=== PATIENT | female | born 1960 | race Caucasian/White ===

== ENCOUNTER 2016-06-04 13:40 | Emergency (ER) | payer SELFPAY ==
[~2016-06-04] VITALS: Ht 144.8 cm; Wt 56.8 kg
[2016-06-04 13:40] VITALS: Ht 144.8 cm; Wt 56.8 kg
[2016-06-04] MEDS ORDERED: HALOPERIDOL 5 MG INJ ONE (13:50)
[2016-06-04] MEDS ORDERED: LORAZEPAM 2 MG INJ ONE (13:50)
[2016-06-04] MEDS ORDERED: HALOPERIDOL 5 MG INJ IM ONE (14:00)
[2016-06-04] MEDS ORDERED: LORAZEPAM 2 MG INJ IM ONE (14:00)
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
[2016-06-04 15:35] LABS: ADD SCAN DIFF NO
[2016-06-04 15:39] LABS: BASOPHILS % 0.3 % (0.0-2.0); EOSINOPHILS # 0.2 10^3/ul (0.0-0.5); EOSINOPHILS % 2.9 % (0.0-7.0); HEMATOCRIT 31.5 % (37.0-47.0); HEMOGLOBIN 9.9 g/dl (12.0-16.0); LYMPHOCYTES # 2.7 10^3/ul (0.8-2.9); LYMPHOCYTES % 36.3 % (15.0-51.0); MEAN CORPUSCULAR HEMOGLOBIN 29.1 pg (29.0-33.0); MEAN CORPUSCULAR HGB CONC 31.4 g/dl (32.0-37.0); MEAN CORPUSCULAR VOLUME 92.6 fl (82.0-101.0); MEAN PLATELET VOLUME 9.5 fl (7.4-10.4); MONOCYTE # 0.6 10^3/ul (0.3-0.9); MONOCYTES % 8.1 % (0.0-11.0); NEUTROPHIL # 3.9 10^3/ul (1.6-7.5); NEUTROPHILS % 52.1 % (39.0-77.0); PLATELET COUNT 309 10^3/UL (140-415); RED CELL DISTRIBUTION WIDTH 16.6 % (11.5-14.5); WHITE BLOOD COUNT 7.5 10^3/ul (4.8-10.8)
[2016-06-04 15:42] LABS: ADD UMIC YES; URINE BILIRUBIN (Dip) NEGATIVE (NEGATIVE); URINE BLOOD (Dip) NEGATIVE (NEGATIVE); URINE COLOR LT. YELLOW (YELLOW); URINE GLUCOSE (Dip) NEGATIVE (NEGATIVE); URINE KETONES (Dip) NEGATIVE (NEGATIVE); URINE LEUKOCYTE ESTERASE (Dip) 3+ (NEGATIVE); URINE NITRITE (Dip) NEGATIVE (NEGATIVE); URINE TOTAL PROTEIN (Dip) NEGATIVE (NEGATIVE); URINE UROBILINOGEN (Dip) 0.2 E.U./dL (0.1-1.0)
[2016-06-04 15:50] LABS: ALBUMIN 3.4 g/dl (3.3-4.9)
[2016-06-04 15:51] LABS: CHLORIDE 104 mmol/L (97-110); INR 0.87; PARTIAL THROMBOPLASTIN TIME 27.7 Sec (25.0-35.0); POTASSIUM 3.5 mmol/L (3.5-5.1); PROTIME 11.8 Sec (12.2-14.2); PT RATIO 0.9; SODIUM 139 mmol/L (135-144)
[2016-06-04 15:53] LABS: ANION GAP 13 (8-16); ASPARTATE AMINO TRANSFERASE 52 IU/L (15-46); BACTERIA,URINE MANY; BILIRUBIN,INDIRECT 0.1 mg/dl (0-1.1); BILIRUBIN,TOTAL 0.1 mg/dl (0.2-1.3); CARBON DIOXIDE 26 mmol/L (21-31); CREATININE 0.65 mg/dl (0.44-1.00); SQUAMOUS EPITHELIAL CELL,UR MANY; URINE RBCS NONE SEEN /HPF (0)
[2016-06-04 15:54] LABS: ALANINE AMINOTRANSFERASE 43 IU/L (13-69); ALKALINE PHOSPHATASE 146 IU/L (42-121); BLOOD UREA NITROGEN 17 mg/dl (7-20); CALCIUM 9.6 mg/dl (8.4-10.2); GLUCOSE 97 mg/dl (70-220); SALICYLATE < 1.0 mg/dl (5.0-30.0); TOTAL PROTEIN 6.8 g/dl (6.1-8.1)
[2016-06-04 15:55] LABS: ACETAMINOPHEN < 10.0 ug/ml (10.0-30.0)
[2016-06-04 16:03] LABS: ETHANOL < 10.0 mg/dl
[2016-06-04 16:15] LABS: BARBITURATES Negative (NEGATIVE); BENZODIAZEPINES Negative (NEGATIVE); CANNABINOIDS Negative (NEGATIVE); COCAINE Positive (NEGATIVE); OPIATES Negative (NEGATIVE)
[2016-06-04] MEDS ORDERED: CIPROFLOXACIN 500 MG TAB PO ONE (17:00)
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
[2016-06-05] MEDS ORDERED: LORAZEPAM 2 MG INJ IM ONE (16:00)
[2016-06-06 04:27] VITALS: BP 138/99; PULSE 81; RESP 18; TEMP 98.7
== END 2016-06-06 05:09 ==
LOC: E/R 13:40
DX: F20.9 Schizophrenia, unspecified (principal); N30.00 Acute cystitis without hematuria; F14.10 Cocaine abuse, uncomplicated; R07.9 Chest pain, unspecified
CPT/HCPCS: 36415; 80053; 80306; 80307; 81001; 81003; 85025; 85610; 85730; 93005; 96372; 99284; J1630; J2060